=== PATIENT | male | born 1945 | race Caucasian/White ===

== ENCOUNTER 2019-02-25 12:38 | Inpatient (IN) ==
[2019-02-25 15:15] VITALS: BMI 21.8
[2019-02-25] MEDS ORDERED: PATIENT'S HOME MEDICATION PO PRN (15:21)
[2019-02-25] MEDS: CHECK PATCH XX SCH ×2 (15:39→21:02)
[2019-02-25] MEDS: PATIENT'S HOME MEDICATION PO SCH ×3 (15:59→21:03)
[2019-02-25] MEDS ORDERED: PATIENT'S HOME MEDICATION SL PRN (16:00)
[2019-02-25] MEDS ORDERED: TRANSDERM-SCOP TD SCH (16:00)
[2019-02-25] MEDS: ROXANOL ORAL SOLN 20MG UDC PO PRN (21:03)
[2019-02-26] MEDS: ROXANOL ORAL SOLN 20MG UDC PO PRN ×8 (03:00→23:20)
[2019-02-26] MEDS ORDERED: PATIENT'S HOME MEDICATION PO ONE (04:08)
[2019-02-26] MEDS: TYLENOL 325 MG TAB PO PRN ×2 (04:09→16:39)
[2019-02-26] MEDS ORDERED: TYLENOL 325 MG TAB PO ONE (04:11)
[2019-02-26] MEDS: PATIENT'S HOME MEDICATION PO SCH ×3 (09:15→21:20)
[2019-02-26] MEDS: CHECK PATCH XX SCH ×2 (09:49→21:20)
[2019-02-26] MEDS: PATIENT'S HOME MEDICATION PO PRN (15:26)
[2019-02-26] MEDS: RisperDAL TAB 1 MG PO SCH ×2 (16:39→21:20)
[2019-02-27] MEDS: CHECK PATCH XX SCH ×2 (09:02→21:24)
[2019-02-27] MEDS: RisperDAL TAB 1 MG PO SCH ×4 (09:02→21:18)
[2019-02-27] MEDS: ROXANOL ORAL SOLN 20MG UDC PO PRN ×4 (09:03→21:16)
[2019-02-27] MEDS: PATIENT'S HOME MEDICATION PO PRN (09:03)
[2019-02-27] MEDS: PATIENT'S HOME MEDICATION PO SCH (21:44)
--- NOTE | 2019-02-27 22:06 | DR.H&P ---
H&P - History & Physical for Day of: H&P Date: 02/25/19 - Chief Complaint Chief Complaint: PALLIATIVE CARE - History of Present Illness History of Present Illness: IS A 73 YEAR OLD PATIENT OF OURS. HE IS UNDER THE CARE [facility] DUE TO METASTATIC LUNG CANCER. HOSPICE NURSES AND FAMILY REPORTS THAT PATIENT HAS BEEN UNRESPONSIVE TO VERBAL AND PAINFUL STIMULI FOR THE PAST SEVERAL DAYS. FAMILY WISHED TO ADMIT PATIENT FOR PALLIATIVE CARE. ON ADMISSION, [facility] WILL MANAGE HIS MEDICATIONS. HE WILL BE STARTED ON A FENTANYL PATCH 25MCG TD Q72H, A SCOPALAMINE PATCH, MIRTAZAPINE 15MG PO HS, HYOSYNE ORAL DROPS 1ML PO Q6H PRN SECRETIONS, ROXANOL DROPS 10MG PO Q2H PRN PAIN, AND RISPERIDONE 1-2MG PO QID. WE WILL FOLLOW-UP AND CONTINUE TO MONITOR PATIENT. - Past Medical History Past Medical History: COPD, Hypertension, [place] Additional Medical History: EMPHYSEMA, LUNG CANCER - Past Surgical History Additional Surgical History: PEG TUBE PLACEMENT - Family History Family Medical History: Cancer, [place], Hypertension - Social History Does patient currently use any type of tobacco product: No Have you used tobacco products in the last 12 months: No Type of Tobacco Use: None Does any household member use tobacco: No Alcohol Use: None Drug Use: None Prescription drug monitoring program results: PDMP reviewed and no concerns identified - Medications Home Medications: No Known Drug Allergies Allergy (Verified 02/25/19 15:16) CONTINUE taking the following medications fentanyl [Duragesic] 1 patch TRANSDERMAL Q72H 02/25/19 [History] mirtazapine 15 mg PO HS 02/25/19 [History] morphine concentrate 0.25 ml PO .Q2-4H PRN 02/25/19 [History] risperidone 1 mg PO QID 02/25/19 [History] - Review of Systems Constitutional: Fever, Weakness Eyes: No Symptoms Reported ENT: No Symptoms Reported Respiratory: No Symptoms Reported Cardiovascular: No Symptoms Reported Gastrointestinal: No Symptoms Reported Genitourinary: No Symptoms Reported Musculoskeletal: No Symptoms Reported Skin: No Symptoms Reported Neurological: See HPI, Other (UNRESPONSIVE ) - Physical Exam Vital Signs: Temperature 98.4 F Pulse Rate [Brachial] 117 Respiratory Rate 24 Blood Pressure [Left Arm] 122/55 O2 Sat by Pulse Oximetry 84 Oriented: Unable to test Eyes: Normal Ear: Normal Nose: Normal Throat: Normal Respiratory: Diminished Throughout Cardiovascular: Normal : Normal Auscultation: Bowel Sounds: Normal Palpation: Normal Tenderness: Normal Skin: Normal Musculoskeletal: Normal Psychiatric: Other - Assessment/Plan (1) Palliative care patient Status: Acute Plan: ADMIT, PALLIATIVE CARE WITH HOSPICE TO MANAGE MEDICATIONS, CONTINUE TO MONITOR (2) COPD (chronic obstructive pulmonary disease) Qualifiers: COPD type: unspecified COPD Qualified Code(s): J44.9 - Chronic obstructive pulmonary disease, unspecified Status: Chronic (3) Lung cancer Qualifiers: Laterality: unspecified laterality Status: Chronic - Allergies Allergies/Adverse Reactions: Allergies Allergy/AdvReac Type Severity Reaction Status Date / Time No Known Drug Allergies Allergy Verified 02/25/19 15:16
[2019-02-28] MEDS: ROXANOL ORAL SOLN 20MG UDC PO PRN ×8 (00:57→22:02)
[2019-02-28] MEDS: CHECK PATCH XX SCH ×2 (09:40→20:07)
[2019-02-28] MEDS: PATIENT'S HOME MEDICATION PO PRN (09:40)
[2019-02-28] MEDS: RisperDAL TAB 1 MG PO SCH ×4 (09:40→20:07)
[2019-02-28] MEDS ORDERED: TRANSDERM-SCOP TD SCH (10:00)
[2019-02-28] MEDS: PATIENT'S HOME MEDICATION PO SCH (20:11)
--- NOTE | 2019-02-28 21:38 | PCM.PROG ---
Progress Note - Progress Note for Day of Date of Exam: 02/27/19 - Subjective Subjective: WAS ADMITTED THROUGH [facility] FOR PALLIATIVE CARE DUE TO METASTATIC LUNG CANCER. HE REMAINS UNRESPONSIVE TO VERBAL STIMULI TODAY. HE DOES MOAN TO PAINFUL STIMULI. FAMILY REPORTS THAT HE RESTED WELL THROUGHOUT THE NIGHT. ON EXAMINATION, PUPILS FIXED AND DILATED. HE IS NOTED WITH AGONAL BREATHING WITH PERIODS OF APNEA. BILATERAL LUNGS AERE NOTED WITH CRACKLES. MOTTLING NOTED TO LOWER LEGS AND FEET. VITALS THIS MORNING ARE: 98.4-111-14-83%-133/63. WE WILL CONTINUE WITH MEDS FROM [facility] AND CONTINUE TO MONITOR TODAY AND WILL ADJUST MEDICATIONS NEEDED. - Past Medical Family Social History Past Med/Fam/Surg Hx: No changes since H&P Allergies: Allergies No Known Drug Allergies Allergy (Verified 02/25/19 15:16) - Review of Systems ROS: No change since H&P - Vital Signs and I&O's Vital Signs: Temperature 100.1 F Pulse Rate [Brachial] 141 Respiratory Rate 9 Blood Pressure [Left Arm] 100/60 O2 Sat by Pulse Oximetry 79 Intake and Output: Intake & Output 02/26/19 02/27/19 02/28/19 03/01/19 11:59 11:59 11:59 11:59 Intake Total 25 / 25 0 / 0 0 / 0 0 / 0 Output Total 40 / 40 150 / 150 325 / 325 25 / 25 Balance -15 / -15 -150 / -150 -325 / -325 -25 / -25 - Physical Exam Oriented: Unable to test Eyes: Other (PUPILS FIXED AND DILATED) Ear: Normal Nose: Normal Throat: Normal Respiratory: Generalized, Diminished, OTHER (CRACKLES) Cardiovascular: Tachycardia : Normal Auscultation: Bowel Sounds: Normal Palpation: Normal Tenderness: Normal Skin: Normal Musculoskeletal: Normal Psychiatric: Other Speech Pattern: Aphasic - Plan (1) Palliative care patient Status: Acute Plan: ADMIT, PALLIATIVE CARE WITH HOSPICE TO MANAGE MEDICATIONS, CONTINUE TO MONITOR (2) COPD (chronic obstructive pulmonary disease) Status: Chronic Qualifiers: COPD type: unspecified COPD Qualified Code(s): J44.9 - Chronic obstructive pulmonary disease, unspecified (3) Lung cancer Status: Chronic Qualifiers: Laterality: unspecified laterality
--- NOTE | 2019-02-28 21:50 | PCM.PROG ---
Progress Note - Progress Note for Day of Date of Exam: 02/26/19 - Subjective Subjective: WAS ADMITTED THROUGH [facility] FOR PALLIATIVE CARE DUE TO METASTATIC LUNG CANCER. HE REMAINS UNRESPONSIVE TO VERBAL STIMULI TODAY. HE DOES MOAN TO PAINFUL STIMULI. FAMILY REPORTS THAT HE RESTED WELL THROUGHOUT THE NIGHT. ON EXAMINATION, PUPILS FIXED AND DILATED. HE IS NOTED WITH AGONAL BREATHING WITH PERIODS OF APNEA. BILATERAL LUNGS AERE NOTED WITH CRACKLES. MOTTLING NOTED TO LOWER LEGS AND FEET. VITALS THIS MORNING ARE: 98.5-116-14-81%NC-119/61. WE WILL CONTINUE WITH MEDS FROM [facility]ACK[facility] AND CONTINUE TO MONITOR TODAY AND WILL ADJUST MEDICATIONS NEEDED. - Past Medical Family Social History Past Med/Fam/Surg Hx: No changes since H&P Allergies: Allergies No Known Drug Allergies Allergy (Verified 02/25/19 15:16) - Review of Systems ROS: No change since H&P - Vital Signs and I&O's Vital Signs: Temperature 100.1 F Pulse Rate [Brachial] 141 Respiratory Rate 9 Blood Pressure [Left Arm] 100/60 O2 Sat by Pulse Oximetry 79 Intake and Output: Intake & Output 02/26/19 02/27/19 02/28/19 03/01/19 11:59 11:59 11:59 11:59 Intake Total 25 / 25 0 / 0 0 / 0 0 / 0 Output Total 40 / 40 150 / 150 325 / 325 25 / 25 Balance -15 / -15 -150 / -150 -325 / -325 -25 / -25 - Physical Exam Oriented: Unable to test Eyes: Other (PUPILS FIXED AND DILATED) Ear: Normal Nose: Normal Throat: Normal Respiratory: Generalized, Diminished, OTHER (CRACKLES) Cardiovascular: Tachycardia : Normal Auscultation: Bowel Sounds: Normal Palpation: Normal Tenderness: Normal Skin: Normal Musculoskeletal: Normal Psychiatric: Other Speech Pattern: Aphasic - Plan (1) Palliative care patient Status: Acute Plan: ADMIT, PALLIATIVE CARE WITH HOSPICE TO MANAGE MEDICATIONS, CONTINUE TO MONITOR (2) COPD (chronic obstructive pulmonary disease) Status: Chronic Qualifiers: COPD type: unspecified COPD Qualified Code(s): J44.9 - Chronic obstructive pulmonary disease, unspecified (3) Lung cancer Status: Chronic Qualifiers: Laterality: unspecified laterality
[2019-02-28] MEDS: TYLENOL 325 MG TAB PO PRN ×2 (23:45→23:47)
[2019-03-01] MEDS: ROXANOL ORAL SOLN 20MG UDC PO PRN ×6 (00:05→11:06)
[2019-03-01] MEDS: RisperDAL TAB 1 MG PO SCH (09:15)
[2019-03-01] MEDS: CHECK PATCH XX SCH (09:15)
[2019-03-01 12:41] VITALS: BP 74/42
[2019-03-01] MEDS ORDERED: VERSED 100 MG in NS 100 ML IV 80 ML IV PRN (14:00)
[2019-03-01] MEDS ORDERED: MORPHINE SULFATE PCA 30 MG IVP PRN (14:00)
== END 2019-03-01 15:25 | disposition home or self-care (01) | DRG 180 ==
LOC: MED/SURG 12:52
PROVIDERS: ADMIT Internal Medicine; ATTEND Internal Medicine
DX: I10 Essential (primary) hypertension; C34.90 Malignant neoplasm of unspecified part of unspecified bronchus or lung; Z51.5 Encounter for palliative care; J44.9 Chronic obstructive pulmonary disease, unspecified; C79.9 Secondary malignant neoplasm of unspecified site; I46.9 Cardiac arrest, cause unspecified
CPT/HCPCS: 94760